=== PATIENT | male | born 1980 | race African-American/Black ===

== ENCOUNTER → 2023-08-31 | Day surgery (SDC) | payer OTHER ==
[~2023-08-31] VITALS: Ht 177.8 cm; Wt 68.0 kg
[~2023-08-31] MED LIST: BUPIVACAINE HCL/PF 0.5% (5MG/ML) 10ML ONE; Balance of Nature PO; FENTANYL CITRATE/PF 50MCG/ML 2ML VIAL ONE; LABETALOL 5MG/ML 4ML INJ IV PRN; LIDOCAINE HCL 1% 10 MG/ML 10ML VIAL ONE; LIDOCAINE HCL 1% 20ML VIAL (Pyxis) INJ ONE; MIDAZOLAM HCL 2 MG/2 ML VIAL ONE; ONDANSETRON HCL 4MG/2ML INJ IV PRN; POLYMYXIN B SULFATE 500000 UNITS/VIAL ONE; PROPOFOL 200MG/20ML VIAL IV ONE; ROCURONIUM BROMIDE 10MG/ML VIAL 5ML IV ONE; SKIN ADHESIVE 0.7 GM EA TOP ONE; URO10 PO
[2023-08-31 06:10] LABS: BASOPHILS % 1.1 % (0.0-2.0); EOSINOPHILS % 2.4 % (0.0-5.0); HEMATOCRIT. 43.1 % (42.0-52.0); HEMOGLOBIN. 14.4 g/dL (14.0-18.0); LYMPHOCYTES % 22.9 % (20.0-50.0); MEAN CORPUSCULAR HEMOGLOBIN 33.2 pg (28.0-32.0); MEAN CORPUSCULAR HGB CONC 33.4 g/dL (31.0-37.0); MEAN CORPUSCULAR VOLUME 99.3 fL (80.0-94.0); MEAN PLATELET VOLUME 8.3 fl (7.4-10.4); MONOCYTES % 8.2 % (2.0-8.0); NEUTROPHILS % 65.4 % (40.0-76.0); PLATELET 274 x1000/uL (130-400); RED BLOOD CELL COUNT 4.34 mill/uL (4.7-6.1); WHITE BLOOD COUNT 9.2 x1000/uL (4.5-11.0)
[2023-08-31 06:15] LABS: CHLORIDE 110 mEq/L (98-107); POTASSIUM 4.5 mEq/L (3.5-5.1); SODIUM 141 mEq/L (136-145)
[2023-08-31 06:16] LABS: CALCIUM 9.2 mg/dL (8.7-10.4); CARBON DIOXIDE 27 mEq/L (21-32)
[2023-08-31 06:21] LABS: CLARITY URINE CLEAR (CLEAR); COLOR URINE YELLOW (YELLOW); GLUCOSE 93 mg/dL (70-105); GLUCOSE URINE NEGATIVE (NEGATIVE); KETONES URINE NEGATIVE (NEGATIVE); LEUKOCYTE ESTERASE URINE NEGATIVE (NEGATIVE); NITRITE URINE NEGATIVE (NEGATIVE); OCCULT BLOOD URINE NEGATIVE (NEGATIVE); PROTEIN URINE NEGATIVE (NEGATIVE); UREA NITROGEN BLOOD 10 mg/dL (9-23); UROBILINOGEN URINE 0.2 E.U./dL (0.2-1.0)
[2023-08-31] MEDS: LACTATED RINGERS 1,000 ML IV SCH (06:42)
[2023-08-31] MEDS: MEPERIDINE HCL/PF 25MG/ML CPJ IV PRN (10:29)
[2023-08-31] MEDS: BUPIVACAINE HCL 0.5% 175 ML in ON-Q PUMP (PM013=P270X2) IR SCH (10:49)
[2023-08-31] MEDS: HYDROMORPHONE HCL/PF 2MG/ML CPJ IV PRN (11:09)
[2023-08-31 12:01] VITALS: BP 126/90; PULSE 70; RESP 21
== END | disposition home or self-care (01) ==
LOC: OR 05:25
PROVIDERS: ATTEND Surgery
DX: K40.90 Unilateral inguinal hernia, without obstruction or gangrene, not specified as recurrent (principal); Z79.899 Other long term (current) drug therapy; Z98.890 Other specified postprocedural states
CPT/HCPCS: 49505; 36415; 80048; 85025; 81003; J3010; J3490 ×6; J2250; J2704; J1170; J2175; C1781

== ENCOUNTER 2023-09-01 04:07 | Emergency (ER) | payer OTHER ==
[~2023-09-01 04:07] MED LIST changes: -BUPIVACAINE HCL/PF 0.5% (5MG/ML) 10ML ONE; -FENTANYL CITRATE/PF 50MCG/ML 2ML VIAL ONE; -LABETALOL 5MG/ML 4ML INJ IV PRN; -LIDOCAINE HCL 1% 10 MG/ML 10ML VIAL ONE; -LIDOCAINE HCL 1% 20ML VIAL (Pyxis) INJ ONE; -MIDAZOLAM HCL 2 MG/2 ML VIAL ONE; -ONDANSETRON HCL 4MG/2ML INJ IV PRN; -POLYMYXIN B SULFATE 500000 UNITS/VIAL ONE; -PROPOFOL 200MG/20ML VIAL IV ONE; -ROCURONIUM BROMIDE 10MG/ML VIAL 5ML IV ONE; -SKIN ADHESIVE 0.7 GM EA TOP ONE
[2023-09-01 04:21] VITALS: PULSE 90; RESP 20
== END 2023-09-01 06:43 | disposition home or self-care (01) ==
LOC: ER 04:07
DX: K46.9 Unspecified abdominal hernia without obstruction or gangrene (principal)
CPT/HCPCS: 99281

== ENCOUNTER 2024-06-02 02:49 | Emergency (ER) | payer OTHER ==
[~2024-06-02] VITALS: Ht 180.3 cm; Wt 73.0 kg
[~2024-06-02 02:49] MED LIST changes: +CELE-146 PO; +GABA-1180 MT; +LEVO-65 MT; +TAMS-11 PO; +TOLT1TAB12 PO
[2024-06-02 02:55] VITALS: O2SAT 100
[2024-06-02 02:59] VITALS: BP 119/79; PULSE 86; RESP 18; TEMP 36.6; O2SAT 100
[2024-06-02 06:50] LABS: CLARITY URINE CLEAR (CLEAR); COLOR URINE YELLOW (YELLOW); GLUCOSE URINE NEGATIVE (NEGATIVE); KETONES URINE NEGATIVE (NEGATIVE); LEUKOCYTE ESTERASE URINE 1+ (NEGATIVE); NITRITE URINE NEGATIVE (NEGATIVE); OCCULT BLOOD URINE 2+ (NEGATIVE); PROTEIN URINE 1+ (NEGATIVE); SPECIFIC GRAVITY URINE 1.019 (1.005-1.030)
[2024-06-02 07:02] LABS: RBC URINE 15-25 /hpf (0-2)
[2024-06-02 07:03] LABS: BACTERIA URINE 1+; SQUAMOUS EPITHELIAL CELL URINE NONE SEEN /lpf (RARE/1+); YEAST URINE NONE SEEN
[2024-06-02] MEDS ORDERED: PHEN-815 MT (08:12)
[2024-06-02] MEDS ORDERED: CEFP200T14 MT (08:12)
== END 2024-06-02 09:42 | disposition home or self-care (01) ==
LOC: ER 02:49
DX: N30.01 Acute cystitis with hematuria (principal); F12.90 Cannabis use, unspecified, uncomplicated; Z79.899 Other long term (current) drug therapy; Z98.890 Other specified postprocedural states
CPT/HCPCS: 76770; 81003; 87491; 87591; 99284

== ENCOUNTER 2024-06-03 06:34 | Emergency (ER) | payer OTHER ==
[~2024-06-03] VITALS: Ht 180.3 cm; Wt 68.0 kg
[~2024-06-03 06:34] MED LIST changes: +CEFP200T14 MT; +PHEN-815 MT
[2024-06-03 06:47] VITALS: O2SAT 100
[2024-06-03 07:23] LABS: DIFFERENTIAL COMMENT 0; EOSINOPHILS % 5.2 % (0.0-5.0); HEMATOCRIT. 37.9 % (42.0-52.0); HEMOGLOBIN. 12.5 g/dL (14.0-18.0); LYMPHOCYTES % 26.2 % (20.0-50.0); MEAN CORPUSCULAR HEMOGLOBIN 31.9 pg (28.0-32.0); MEAN CORPUSCULAR VOLUME 96.7 fL (80.0-94.0); MEAN PLATELET VOLUME 8.7 fl (7.4-10.4); MONOCYTES % 10.1 % (2.0-8.0); NEUTROPHILS % 57.5 % (40.0-76.0); PLATELET 264 x1000/uL (130-400); RED BLOOD CELL COUNT 3.92 mill/uL (4.7-6.1); RED CELL DISTRIBUTION WIDTH 13.3 % (11.6-14.6); WHITE BLOOD COUNT 7.9 x1000/uL (4.5-11.0)
[2024-06-03 07:26] LABS: CHLORIDE 108 mEq/L (98-107); POTASSIUM 4.3 mEq/L (3.5-5.1); SODIUM 141 mEq/L (136-145)
[2024-06-03 07:28] LABS: CALCIUM 8.6 mg/dL (8.7-10.4); CARBON DIOXIDE 28 mEq/L (21-32)
[2024-06-03 07:32] LABS: GLUCOSE 106 mg/dL (70-105)
[2024-06-03 07:33] LABS: UREA NITROGEN BLOOD 12 mg/dL (9-23)
[2024-06-03 07:58] LABS: CLARITY URINE CLEAR (CLEAR); COLOR URINE DARK YELLOW (YELLOW); GLUCOSE URINE NEGATIVE (NEGATIVE); KETONES URINE NEGATIVE (NEGATIVE); LEUKOCYTE ESTERASE URINE 1+ (NEGATIVE); NITRITE URINE POSITIVE (NEGATIVE); OCCULT BLOOD URINE 3+ (NEGATIVE); PH URINE 6.5 (4.5-8.0); PROTEIN URINE 2+ (NEGATIVE)
[2024-06-03 08:28] LABS: BACTERIA URINE FEW; RBC URINE TNTC /hpf (0-2); SQUAMOUS EPITHELIAL CELL URINE NONE SEEN /lpf (RARE/1+); YEAST URINE NONE SEEN
[2024-06-03 08:43] VITALS: BP 117/70; PULSE 77; RESP 16; TEMP 36.8; O2SAT 100
== END 2024-06-03 09:35 | disposition home or self-care (01) ==
LOC: ER 06:34
DX: N30.91 Cystitis, unspecified with hematuria (principal); D64.9 Anemia, unspecified; F12.90 Cannabis use, unspecified, uncomplicated
CPT/HCPCS: 36415; 80048; 81003; 85025; 99283

== ENCOUNTER 2024-07-06 12:15 | Emergency (ER) | payer OTHER ==
[~2024-07-06] VITALS: Ht 175.3 cm; Wt 75.0 kg
[~2024-07-06 12:15] MED LIST changes: -TAMS-11 PO; +TAMS-54 PO
[2024-07-06 12:24] VITALS: O2SAT 99
[2024-07-06 12:37] VITALS: BP 120/81; PULSE 102; RESP 20; TEMP 36.8; O2SAT 98
[2024-07-06 13:21] LABS: DIFFERENTIAL COMMENT 0; HEMOGLOBIN. 14.3 g/dL (14.0-18.0); LYMPHOCYTES % 28.8 % (20.0-50.0); MEAN CORPUSCULAR HEMOGLOBIN 31.3 pg (28.0-32.0); MEAN CORPUSCULAR HGB CONC 32.5 g/dL (31.0-37.0); MEAN CORPUSCULAR VOLUME 96.5 fL (80.0-94.0); MONOCYTES % 7.1 % (2.0-8.0); NEUTROPHILS % 62.1 % (40.0-76.0); PLATELET 322 x1000/uL (130-400); RED BLOOD CELL COUNT 4.57 mill/uL (4.7-6.1); RED CELL DISTRIBUTION WIDTH 12.7 % (11.6-14.6); WHITE BLOOD COUNT 8.6 x1000/uL (4.5-11.0)
[2024-07-06 13:33] LABS: CHLORIDE 105 mEq/L (98-107); POTASSIUM 4.3 mEq/L (3.5-5.1); SODIUM 139 mEq/L (136-145)
[2024-07-06 13:34] LABS: CALCIUM 9.7 mg/dL (8.7-10.4); CARBON DIOXIDE 25 mEq/L (21-32)
[2024-07-06 13:39] LABS: GLUCOSE 83 mg/dL (70-105); UREA NITROGEN BLOOD 12 mg/dL (9-23)
[2024-07-06 13:41] LABS: ALANINE AMINOTRANSFERASE 13 IU/L (10-49); ALBUMIN 4.4 g/dL (3.2-4.8); ASPARTATE AMINOTRANSFERASE 22 IU/L (<34); BILIRUBIN TOTAL 0.8 mg/dL (0.1-1.0); PROTEIN TOTAL 7.5 g/dL (6.0-8.3)
[2024-07-06 13:53] LABS: TROPONIN I HIGH SENSITIVITY < 4 ng/L (3.0-53)
[2024-07-06 14:37] LABS: CLARITY URINE TURBID (CLEAR); COLOR URINE YELLOW (YELLOW); GLUCOSE URINE NEGATIVE (NEGATIVE); KETONES URINE TRACE (NEGATIVE); LEUKOCYTE ESTERASE URINE 1+ (NEGATIVE); NITRITE URINE NEGATIVE (NEGATIVE); OCCULT BLOOD URINE 3+ (NEGATIVE); PROTEIN URINE 1+ (NEGATIVE); SPECIFIC GRAVITY URINE 1.022 (1.005-1.030); UROBILINOGEN URINE 0.2 E.U./dL (0.2-1.0)
[2024-07-06] MEDS: LIDOCAINE HCL 1% 20ML VIAL INFIL ONE (15:04)
[2024-07-06 15:24] LABS: RBC URINE 25-50 /hpf (0-2); WBC URINE 0-2 /hpf (0-2)
[2024-07-06 15:25] LABS: BACTERIA URINE 3+
[2024-07-06 15:26] LABS: AMORPHOUS SEDIMENT URINE 2+ /lpf; SQUAMOUS EPITHELIAL CELL URINE NONE SEEN /lpf (RARE/1+)
== END 2024-07-06 16:38 | disposition home or self-care (01) ==
LOC: ER 12:15
DX: N39.0 Urinary tract infection, site not specified (principal); F12.10 Cannabis abuse, uncomplicated; Z46.6 Encounter for fitting and adjustment of urinary device; Z79.899 Other long term (current) drug therapy
CPT/HCPCS: 99284; 80053; 81003; 85025; 87086; 84484; 36415; 51702; J3490

== ENCOUNTER 2024-08-27 11:16 | Emergency (ER) | payer OTHER ==
[~2024-08-27] VITALS: Ht 180.3 cm; Wt 68.0 kg
[2024-08-27 11:33] VITALS: O2SAT 98
[2024-08-27 12:02] LABS: EOSINOPHILS % 1.6 % (0.0-5.0); HEMATOCRIT. 42.3 % (42.0-52.0); HEMOGLOBIN. 14.5 g/dL (14.0-18.0); LYMPHOCYTES % 29.4 % (20.0-50.0); MEAN CORPUSCULAR HEMOGLOBIN 32.5 pg (28.0-32.0); MEAN CORPUSCULAR HGB CONC 34.2 g/dL (31.0-37.0); MEAN PLATELET VOLUME 8.8 fl (7.4-10.4); MONOCYTES % 8.9 % (2.0-8.0); NEUTROPHILS % 59.1 % (40.0-76.0); PLATELET 275 x1000/uL (130-400); RED BLOOD CELL COUNT 4.46 mill/uL (4.7-6.1); RED CELL DISTRIBUTION WIDTH 12.4 % (11.6-14.6); WHITE BLOOD COUNT 9.7 x1000/uL (4.5-11.0)
[2024-08-27 12:22] LABS: CHLORIDE 111 mEq/L (98-107); POTASSIUM 4.1 mEq/L (3.5-5.1); SODIUM 141 mEq/L (136-145)
[2024-08-27 12:23] LABS: CARBON DIOXIDE 24 mEq/L (21-32)
[2024-08-27 12:24] LABS: CALCIUM 8.9 mg/dL (8.7-10.4)
[2024-08-27 12:28] LABS: GLUCOSE 104 mg/dL (70-105)
[2024-08-27 12:29] LABS: UREA NITROGEN BLOOD 12 mg/dL (9-23)
[2024-08-27] MEDS: KETOROLAC 15MG/ML VIAL IV ONE (13:31)
[2024-08-27 14:24] LABS: CLARITY URINE CLOUDY (CLEAR); COLOR URINE DARK YELLOW (YELLOW); GLUCOSE URINE NEGATIVE (NEGATIVE); KETONES URINE NEGATIVE (NEGATIVE); LEUKOCYTE ESTERASE URINE 2+ (NEGATIVE); NITRITE URINE POSITIVE (NEGATIVE); OCCULT BLOOD URINE 2+ (NEGATIVE); PH URINE >=9.0 (4.5-8.0); PROTEIN URINE 4+ (NEGATIVE); SPECIFIC GRAVITY URINE 1.026 (1.005-1.030)
[2024-08-27 14:35] LABS: BACTERIA URINE 1+; RBC URINE 25-50 /hpf (0-2); SQUAMOUS EPITHELIAL CELL URINE RARE /lpf (RARE/1+); TRIPLE PHOSPHATE CRYSTAL URINE 1+ /lpf; YEAST URINE NONE SEEN
[2024-08-27] MEDS ORDERED: SULF1TAB48 MT (15:07)
[2024-08-27 15:51] VITALS: BP 114/68; PULSE 71; RESP 16; TEMP 36.7; O2SAT 99
[2024-08-27] MEDS: CEFTRIAXONE 1GM/50ML 50 ML IV NR (15:51)
== END 2024-08-27 15:52 | disposition home or self-care (01) ==
LOC: ER 11:16
DX: N39.0 Urinary tract infection, site not specified (principal); F12.90 Cannabis use, unspecified, uncomplicated; Z79.899 Other long term (current) drug therapy
CPT/HCPCS: 80048; 81003; 85025; 87086; 87186; 87077; 36415; 74176; 93005; 96365; 96375; 99285; J0696; J1885; Z7610 ×2

== ENCOUNTER 2024-09-19 20:58 | Emergency (ER) | payer OTHER ==
[~2024-09-19] VITALS: Ht 180.3 cm; Wt 69.4 kg
[~2024-09-19 20:58] MED LIST changes: +SULF1TAB48 MT
[2024-09-19 21:01] VITALS: O2SAT 100
[2024-09-19] MEDS: KETOROLAC 30MG/ML VIAL IM ONE (23:35)
[2024-09-20] MEDS: LIDOCAINE 5% PATCH TOP SCH (00:07)
[2024-09-20 00:25] LABS: CLARITY URINE CLOUDY (CLEAR); COLOR URINE YELLOW (YELLOW); GLUCOSE URINE NEGATIVE (NEGATIVE); KETONES URINE TRACE (NEGATIVE); LEUKOCYTE ESTERASE URINE 3+ (NEGATIVE); NITRITE URINE POSITIVE (NEGATIVE); OCCULT BLOOD URINE 2+ (NEGATIVE); PROTEIN URINE 2+ (NEGATIVE); SPECIFIC GRAVITY URINE 1.015 (1.005-1.030); UROBILINOGEN URINE 0.2 E.U./dL (0.2-1.0)
[2024-09-20] MEDS: HYDROCODONE/ACETAMINOPHEN 5/325MG TABLET PO ONE (00:32)
[2024-09-20] MEDS ORDERED: SULF1TAB48 MT (00:44)
[2024-09-20 01:24] LABS: BACTERIA URINE 1+; FINE GRANULAR CASTS URINE 0-5 /lpf; SQUAMOUS EPITHELIAL CELL URINE NONE SEEN /lpf (RARE/1+); WBC URINE 50-100 /hpf (0-2)
[2024-09-20 01:36] VITALS: BP 124/68; PULSE 85; RESP 20; TEMP 36.8; O2SAT 100
== END 2024-09-20 01:44 | disposition home or self-care (01) ==
LOC: ER 20:58
DX: R30.0 Dysuria (principal); N39.0 Urinary tract infection, site not specified; Z85.46 Personal history of malignant neoplasm of prostate; F10.90 Alcohol use, unspecified, uncomplicated; F12.90 Cannabis use, unspecified, uncomplicated; Z79.899 Other long term (current) drug therapy; Y90.9 Presence of alcohol in blood, level not specified
CPT/HCPCS: 99285; 51702; 96372; 81003; 87086; J1885; 99284

== ENCOUNTER 2024-10-19 11:21 | Emergency (ER) | payer OTHER ==
[~2024-10-19] VITALS: Ht 180.3 cm; Wt 73.0 kg
[2024-10-19 11:28] VITALS: O2SAT 99
[2024-10-19 13:43] LABS: CLARITY URINE CLOUDY (CLEAR); COLOR URINE YELLOW (YELLOW); GLUCOSE URINE NEGATIVE (NEGATIVE); KETONES URINE NEGATIVE (NEGATIVE); LEUKOCYTE ESTERASE URINE 3+ (NEGATIVE); NITRITE URINE POSITIVE (NEGATIVE); OCCULT BLOOD URINE 1+ (NEGATIVE); PH URINE 6.0 (4.5-8.0); PROTEIN URINE 1+ (NEGATIVE); SPECIFIC GRAVITY URINE 1.016 (1.005-1.030); UROBILINOGEN URINE 0.2 E.U./dL (0.2-1.0)
[2024-10-19 14:08] LABS: MUCUS URINE TRACE /lpf (NONE/TRACE)
[2024-10-19 14:10] LABS: BACTERIA URINE 2+; SQUAMOUS EPITHELIAL CELL URINE RARE /lpf (RARE/1+)
[2024-10-19 14:11] LABS: WBC URINE 50-100 /hpf (0-2)
[2024-10-19] MEDS ORDERED: SULF1TAB48 MT (14:13)
[2024-10-19] MEDS: CEFTRIAXONE SODIUM 1G VIAL IM ONE (14:57)
[2024-10-19] MEDS: LIDOCAINE HCL 1% 20ML VIAL INFIL ONE (14:57)
[2024-10-19 14:58] VITALS: BP 123/78; PULSE 77; RESP 16; TEMP 36.9; O2SAT 100
[2024-10-19] MEDS ORDERED: IMOD MT (23:28)
[2024-10-21] MEDS ORDERED: CIPR-263 MT (18:23)
== END 2024-10-19 15:00 | disposition home or self-care (01) ==
LOC: ER 11:46
DX: R33.9 Retention of urine, unspecified (principal); F12.10 Cannabis abuse, uncomplicated; Z79.899 Other long term (current) drug therapy; Z98.890 Other specified postprocedural states
CPT/HCPCS: 99283; 81003; 87086; 87186; 87077; 96372; J0696; J2003; 51702; 99284

== ENCOUNTER 2024-10-19 20:43 | Emergency (ER) | payer OTHER ==
[~2024-10-19] VITALS: Ht 180.3 cm; Wt 84.0 kg
[2024-10-19 20:55] VITALS: O2SAT 99
[2024-10-19 21:36] LABS: BASOPHILS % 0.9 % (0.0-2.0); EOSINOPHILS % 1.9 % (0.0-5.0); HEMATOCRIT. 41.9 % (42.0-52.0); HEMOGLOBIN. 14.0 g/dL (14.0-18.0); LYMPHOCYTES % 29.0 % (20.0-50.0); MEAN PLATELET VOLUME 8.6 fl (7.4-10.4); MONOCYTES % 10.9 % (2.0-8.0); NEUTROPHILS % 57.3 % (40.0-76.0); PLATELET 212 x1000/uL (130-400); RED BLOOD CELL COUNT 4.36 mill/uL (4.7-6.1); RED CELL DISTRIBUTION WIDTH 12.8 % (11.6-14.6)
[2024-10-19] MEDS: LOPERAMIDE HCL 2MG CAPSULE PO ONE (21:44)
[2024-10-19 21:52] LABS: CREATININE 1.2 mg/dL (0.6-1.3)
[2024-10-19 21:53] LABS: UREA NITROGEN BLOOD 10 mg/dL (9-23)
[2024-10-19 21:54] LABS: ASPARTATE AMINOTRANSFERASE 29 IU/L (<34)
[2024-10-19 21:55] LABS: BILIRUBIN DIRECT 0.3 mg/dL (<=3.0); BILIRUBIN TOTAL 0.9 mg/dL (0.1-1.0); PROTEIN TOTAL 7.1 g/dL (6.0-8.3)
[2024-10-19 23:05] LABS: CLARITY URINE CLOUDY (CLEAR); COLOR URINE YELLOW (YELLOW); GLUCOSE URINE NEGATIVE (NEGATIVE); KETONES URINE TRACE (NEGATIVE); LEUKOCYTE ESTERASE URINE 3+ (NEGATIVE); NITRITE URINE POSITIVE (NEGATIVE); OCCULT BLOOD URINE TRACE (NEGATIVE); PH URINE 6.5 (4.5-8.0); PROTEIN URINE 1+ (NEGATIVE); SPECIFIC GRAVITY URINE 1.017 (1.005-1.030); UROBILINOGEN URINE 0.2 E.U./dL (0.2-1.0)
[2024-10-19] MEDS: KETOROLAC 15MG/ML VIAL IM ONE (23:07)
[2024-10-19 23:21] LABS: BACTERIA URINE 2+; RBC URINE 0-2 /hpf (0-2); SQUAMOUS EPITHELIAL CELL URINE FEW /lpf (RARE/1+); WBC URINE TNTC /hpf (0-2)
[2024-10-19] MEDS ORDERED: IMOD MT (23:28)
[2024-10-19 23:40] VITALS: BP 96/63; PULSE 73; RESP 12; TEMP 36.8; O2SAT 100
[2024-10-21] MEDS ORDERED: CIPR-263 MT (18:23)
== END 2024-10-19 23:42 | disposition home or self-care (01) ==
LOC: ER 20:43
DX: N39.0 Urinary tract infection, site not specified (principal); F12.10 Cannabis abuse, uncomplicated; Z46.6 Encounter for fitting and adjustment of urinary device; Z79.899 Other long term (current) drug therapy; Z98.890 Other specified postprocedural states
CPT/HCPCS: 99284; 80076; 80048; 81003; 83690; 85025; 87086; 87186; 87077; 36415; 51702; 96372; J1885

== ENCOUNTER 2024-11-17 07:57 | Emergency (ER) | payer OTHER ==
[~2024-11-17] VITALS: Ht 177.8 cm; Wt 72.0 kg
[~2024-11-17 07:57] MED LIST changes: +CIPR-263 MT; +IMOD MT
[2024-11-17 08:05] VITALS: BP 124/85; PULSE 72; RESP 18; TEMP 36.8; O2SAT 99
[2024-11-17 08:07] VITALS: O2SAT 100
== END 2024-11-17 12:18 | disposition left against medical advice (07) ==
LOC: ER 07:57
DX: T82.838A Hemorrhage due to vascular prosthetic devices, implants and grafts, initial encounter (principal); Z53.21 Procedure and treatment not carried out due to patient leaving prior to being seen by health care provider; X58.XXXA Exposure to other specified factors, initial encounter